=== PATIENT | male | born 1970 | race Caucasian/White ===

== ENCOUNTER 2018-06-04 16:50 | Inpatient (IN) | payer OTHER, MEDICAID ==
[2018-06-04] MEDS: ONDANSETRON 4 MG INJ IV ×2 (17:25→21:38)
[2018-06-04] MEDS: HYDROmorphONE 1 MG/ML SYG IV ×2 (17:25→21:38)
[2018-06-04 17:32] LABS: WHITE BLOOD COUNT 6.7 10^3/ul (4.8-10.8)
[2018-06-04 17:32] LABS: ABNORMAL IP MESSAGE 1; HEMATOCRIT 39.2 % (42.0-52.0); MEAN CORPUSCULAR HEMOGLOBIN 29.5 pg (29.0-33.0); MEAN CORPUSCULAR HGB CONC 30.6 g/dl (32.0-37.0); MEAN CORPUSCULAR VOLUME 96.3 fl (82.0-101.0); MEAN PLATELET VOLUME 9.1 fl (7.4-10.4); PLATELET COUNT 160 10^3/UL (140-415); POSITIVE DIFF @See below; RED BLOOD COUNT 4.07 10^6/ul (4.70-6.10); RED CELL DISTRIBUTION WIDTH 22.6 % (11.5-14.5)
[2018-06-04] MEDS: SOD CHLORIDE 0.9% 600 ML IV ×2 (17:34→19:23)
[2018-06-04 17:36] LABS: ADD MAN DIFF? YES
[2018-06-04 17:44] LABS: BASOPHILS % 0.1 % (0.0-2.0); LYMPHOCYTES # 0.3 10^3/ul (0.8-2.9); LYMPHOCYTES % 4.5 % (15.0-51.0); MONOCYTE # 0.4 10^3/ul (0.3-0.9); MONOCYTES % 6.4 % (0.0-11.0)
[2018-06-04 17:54] LABS: ALANINE AMINOTRANSFERASE 168 IU/L (13-69); ALBUMIN 4.8 g/dl (3.3-4.9); ALKALINE PHOSPHATASE 277 IU/L (42-121); ANION GAP 36 (5-13); ASPARTATE AMINO TRANSFERASE 480 IU/L (15-46); BILIRUBIN,INDIRECT 1.1 mg/dl (0-1.1); BILIRUBIN,TOTAL 2.8 mg/dl (0.2-1.3); BLOOD UREA NITROGEN 10 mg/dl (7-20); CALCIUM 8.4 mg/dl (8.4-10.2); CHLORIDE 83 mmol/L (97-110); Estimated GFR 59 mL/min (>60); MAGNESIUM 1.3 mg/dl (1.7-2.5); PHOSPHORUS 4.3 mg/dl (2.5-4.9); POTASSIUM 5.7 mmol/L (3.5-5.1); SODIUM 125 mmol/L (135-144)
[2018-06-04 17:59] LABS: CARBON DIOXIDE 6 mmol/L (21-31); GLUCOSE 575 mg/dl (70-220)
[2018-06-04] MEDS ORDERED: SODIUM CHLORIDE 23.4% 77 MEQ, POTASSIUM CHLORIDE 30 MEQ in DEXTROSE 10% 1,000 ML IV (18:04)
[2018-06-04] MEDS ORDERED: SODIUM CHLORIDE 23.4% 77 MEQ, POTASSIUM CHLORIDE 40 MEQ in DEXTROSE 10% 1,000 ML IV ×2 (18:04→20:39)
[2018-06-04] MEDS ORDERED: SODIUM PHOSPHATE 15 MMOL in SOD CHLORIDE 0.9% 250 ML IV (18:04)
[2018-06-04] MEDS ORDERED: CALCIUM GLUCONATE 10% 2 GM in SOD CHLORIDE 0.9% 100 ML IVPB (18:04)
[2018-06-04] MEDS ORDERED: POTASSIUM CHLORIDE 40 MEQ in SOD CHLORIDE 0.9% 1,000 ML IV ×2 (18:04→20:39)
[2018-06-04] MEDS ORDERED: SODIUM PHOSPHATE 30 MMOL in SOD CHLORIDE 0.9% 250 ML IV (18:04)
[2018-06-04] MEDS ORDERED: SODIUM CHLORIDE 23.4% 77 MEQ in DEXTROSE 10% 1,000 ML IV ×2 (18:04→20:39)
[2018-06-04] MEDS ORDERED: CALCIUM GLUCONATE 10% 1 GM in SOD CHLORIDE 0.9% 100 ML IVPB (18:04)
[2018-06-04] MEDS ORDERED: POTASSIUM CHLORIDE 30 MEQ in SOD CHLORIDE 0.9% 1,000 ML IV (18:04)
[2018-06-04 18:24] LABS: HEMOGLOBIN A1C 4.5 % (0-5.9)
[2018-06-04 18:29] LABS: ACETONE POSITIVE-MODERATE (NEGATIVE)
[2018-06-04] MEDS ORDERED: LACTATED RINGER'S 600 ML IV (18:30)
[2018-06-04] MEDS ORDERED: DEXTROSE 50% 50 ML SYRINGE IV ×4 (18:30→21:00)
[2018-06-04] MEDS ORDERED: MAGNESIUM SULFATE 1 GM/D5W 100 ML IVPB (18:30)
[2018-06-04] MEDS ORDERED: MAGNESIUM SULFATE 2 GM/50 ML 50 ML IVPB (18:30)
[2018-06-04 18:32] LABS: ANISOCYTOSIS 1+ (0-0); BAND NEUTROPHILS #M 1.8 10^3/ul (0.0-0.6); BAND NEUTROPHILS % (M) 28 % (0-4); GIANT THROMBO% (M) 1 % (0-0); LYMPHOCYTES #M 0.1 10^3/ul (0.8-2.9); LYMPHOCYTES % (M) 2 % (15-51); MICROCYTOSIS 1+ (0-0); MONOCYTES % (M) 1 % (0-11); MYELOCYTES #M 0.1 10^3/ul (0.0-0.0); MYELOCYTES % (M) 2 % (0-0); PLATELET MORPHOLOGY COMMENT @See below; POIKILOCYTOSIS 2+ (0-0); SEG NEUT #M 4.6 10^3/ul (1.6-7.5); SEGMENTED NEUTROPHILS (M) % 67 % (39-77); SMUDGE%M 4 % (0-0)
[2018-06-04] MEDS: INSULIN HUMAN REGULAR 100 UNIT in SOD CHLORIDE 0.9% 99 ML IV (18:37)
[2018-06-04 19:24] LABS: MODE NASAL CANNULA; MetHgb Venous 0.3 %; Sample Type Blood venous; Site VENOUS LINE; Venous COHb 0.2 %; Venous Fraction OxyHgb 89.2 %; Venous Oxygen Sat 89.6 mmHG (55.0-75.0); Venous Total Hemglobin 11.2 g/dl
[2018-06-04] MEDS: INSULIN REGULAR, HUMAN 100 UNIT in SOD CHLORIDE 0.9% 100 ML IV (19:25)
[2018-06-04] MEDS: SOD CHLORIDE 0.9% 1,000 ML IV ×3 (19:32→20:51)
[2018-06-04 20:00] LABS: ADD UMIC YES; UR ASCORBIC ACID NEGATIVE (NEGATIVE); UR BILIRUBIN (Dip) NEGATIVE (NEGATIVE); UR BLOOD (Dip) NEGATIVE (NEGATIVE); UR CLARITY CLEAR (CLEAR); UR COLOR YELLOW (YELLOW); UR GLUCOSE (Dip) 3+ mg/dL (NEGATIVE); UR KETONES (Dip) 2+ mg/dL (NEGATIVE); UR LEUKOCYTE ESTERASE (Dip) NEGATIVE Leu/ul (NEGATIVE); UR NITRITE (Dip) NEGATIVE (NEGATIVE); UR RBC 0 /HPF (0-5); UR TOTAL PROTEIN (Dip) 1+ mg/dl (NEGATIVE); UR UROBILINOGEN (Dip) NEGATIVE (NEGATIVE); UR WBC 1 /HPF (0-5)
[2018-06-04 20:17] LABS: ANION GAP 25 (5-13); BLOOD UREA NITROGEN 12 mg/dl (7-20); CALCIUM 7.8 mg/dl (8.4-10.2); CARBON DIOXIDE 11 mmol/L (21-31); CHLORIDE 90 mmol/L (97-110); CREATININE 1.02 mg/dl (0.61-1.24); Estimated GFR > 60 mL/min (>60); MAGNESIUM 1.2 mg/dl (1.7-2.5); PHOSPHORUS 2.5 mg/dl (2.5-4.9); POTASSIUM 4.6 mmol/L (3.5-5.1); SODIUM 126 mmol/L (135-144)
[2018-06-04 20:23] LABS: GLUCOSE 468 mg/dl (70-220)
[2018-06-04] MEDS ORDERED: SOD CHLORIDE 0.9% 1,000 ML IV (20:39)
[2018-06-04] MEDS ORDERED: ONDANSETRON 4 MG INJ IV ×2 (21:00→23:30)
[2018-06-04] MEDS ORDERED: ACETAMINOPHEN 325 MG TAB PO (21:00)
[2018-06-04] MEDS: POTASSIUM CHLORIDE 30 MEQ in SOD CHLORIDE 0.9% 1,000 ML IV ×2 (21:08→21:21)
[2018-06-04 21:12] LABS: LIPASE 2907 U/L (23-300)
[2018-06-04 21:37] LABS: MODE ROOM AIR; MetHgb Venous 0.3 %; Sample Type Blood venous; Site VENOUS LINE; Venous COHb 0 %; Venous Fraction OxyHgb 81.9 %; Venous Oxygen Sat 82.1 mmHG (55.0-75.0); Venous Total Hemglobin 10.9 g/dl
[2018-06-04] MEDS: SODIUM CHLORIDE 23.4% 77 MEQ, POTASSIUM CHLORIDE 30 MEQ in DEXTROSE 10% 1,000 ML IV (23:05)
[2018-06-04] MEDS ORDERED: morphine 4 MG/ML VIAL IV (23:30)
[2018-06-05 01:01] LABS: ANION GAP 17 (5-13); BLOOD UREA NITROGEN 16 mg/dl (7-20); CALCIUM 7.8 mg/dl (8.4-10.2); CARBON DIOXIDE 16 mmol/L (21-31); CHLORIDE 98 mmol/L (97-110); CREATININE 0.87 mg/dl (0.61-1.24); Estimated GFR > 60 mL/min (>60); GLUCOSE 364 mg/dl (70-220); POTASSIUM 4.1 mmol/L (3.5-5.1); SODIUM 131 mmol/L (135-144)
[2018-06-05] MEDS: POTASSIUM CHLORIDE 30 MEQ in SOD CHLORIDE 0.9% 1,000 ML IV (03:13)
[2018-06-05] MEDS: PANTOPRAZOLE 40 MG INJ IV (05:49)
[2018-06-05 05:50] LABS: CHOL/HDL RATIO 3.3 RATIO; CHOLESTEROL 208 mg/dl (100-200); HDL CHOLESTEROL 63 mg/dl (27-67); LDL CHOLESTEROL,CALCULATED 90 mg/dl; LIPASE 1452 U/L (23-300); MAGNESIUM 1.1 mg/dl (1.7-2.5); TRIGLYCERIDES 273 mg/dl (0-149)
[2018-06-05 05:50] LABS: PHOSPHORUS < 0.5 mg/dl (2.5-4.9)
[2018-06-05 05:50] LABS: AMYLASE 64 U/L (11-123)
[2018-06-05 05:54] LABS: ALANINE AMINOTRANSFERASE 111 IU/L (13-69); ALBUMIN 3.2 g/dl (3.3-4.9); ALBUMIN/GLOBULIN RATIO 1.28; ALKALINE PHOSPHATASE 161 IU/L (42-121); ANION GAP 12 (5-13); ASPARTATE AMINO TRANSFERASE 285 IU/L (15-46); BILIRUBIN,INDIRECT 0.8 mg/dl (0-1.1); BILIRUBIN,TOTAL 1.4 mg/dl (0.2-1.3); BLOOD UREA NITROGEN 19 mg/dl (7-20); CARBON DIOXIDE 17 mmol/L (21-31); CHLORIDE 104 mmol/L (97-110); CREATININE 0.74 mg/dl (0.61-1.24); Estimated GFR > 60 mL/min (>60); GLUCOSE 286 mg/dl (70-220); POTASSIUM 4.2 mmol/L (3.5-5.1); SODIUM 133 mmol/L (135-144); TOTAL PROTEIN 5.7 g/dl (6.1-8.1)
[2018-06-05] MEDS: SODIUM CHLORIDE 23.4% 77 MEQ, POTASSIUM CHLORIDE 30 MEQ in DEXTROSE 10% 1,000 ML IV (08:54)
[2018-06-05] MEDS: MAGNESIUM SULFATE 4 GM/100 ML 100 ML IVPB (08:55)
[2018-06-05] MEDS: INSULIN REGULAR, HUMAN 100 UNIT in SOD CHLORIDE 0.9% 100 ML IV (09:51)
[2018-06-05] MEDS ORDERED: DEXTROSE 50% 50 ML SYRINGE IV ×2 (10:00)
[2018-06-05] MEDS ORDERED: POTASSIUM CHLORIDE 30 MEQ in SOD CHLORIDE 0.45% 1,000 ML IV (10:00)
[2018-06-05] MEDS: ACCU-CHEK XX ×14 (10:00→23:00)
[2018-06-05] MEDS: POTASSIUM PHOSPHATE 30 MEQ in SOD CHLORIDE 0.9% 250 ML IVPB (11:21)
[2018-06-05 11:29] LABS: ANION GAP 9 (5-13); BLOOD UREA NITROGEN 17 mg/dl (7-20); CALCIUM 8.9 mg/dl (8.4-10.2); CARBON DIOXIDE 18 mmol/L (21-31); CHLORIDE 110 mmol/L (97-110); CREATININE 0.78 mg/dl (0.61-1.24); Estimated GFR > 60 mL/min (>60); GLUCOSE 103 mg/dl (70-220); MAGNESIUM 2.4 mg/dl (1.7-2.5); POTASSIUM 3.7 mmol/L (3.5-5.1); SODIUM 137 mmol/L (135-144)
[2018-06-05 11:30] LABS: PHOSPHORUS < 0.5 mg/dl (2.5-4.9)
[2018-06-05] MEDS: D5-LR + KCL 20 MEQ 1,000 ML IV ×2 (12:45→22:15)
[2018-06-05] MEDS: INSULIN HUMAN REGULAR 100 UNIT in SOD CHLORIDE 0.9% 99 ML IV (13:40)
[2018-06-05 14:02] LABS: ANION GAP 10 (5-13); BLOOD UREA NITROGEN 16 mg/dl (7-20); CALCIUM 8.9 mg/dl (8.4-10.2); CARBON DIOXIDE 18 mmol/L (21-31); CHLORIDE 109 mmol/L (97-110); CREATININE 0.77 mg/dl (0.61-1.24); Estimated GFR > 60 mL/min (>60); GLUCOSE 155 mg/dl (70-220); MAGNESIUM 2.7 mg/dl (1.7-2.5); PHOSPHORUS 0.6 mg/dl (2.5-4.9); SODIUM 137 mmol/L (135-144)
[2018-06-05] MEDS: THIAMINE 100 MG TAB PO (15:28)
[2018-06-05 19:02] LABS: ANION GAP 10 (5-13); BLOOD UREA NITROGEN 13 mg/dl (7-20); CALCIUM 8.9 mg/dl (8.4-10.2); CARBON DIOXIDE 18 mmol/L (21-31); CHLORIDE 111 mmol/L (97-110); Estimated GFR > 60 mL/min (>60); GLUCOSE 163 mg/dl (70-220); MAGNESIUM 2.3 mg/dl (1.7-2.5); POTASSIUM 3.6 mmol/L (3.5-5.1); SODIUM 139 mmol/L (135-144)
[2018-06-05 19:05] LABS: PHOSPHORUS < 0.5 mg/dl (2.5-4.9)
[2018-06-05 22:32] LABS: ANION GAP 7 (5-13); BLOOD UREA NITROGEN 10 mg/dl (7-20); CALCIUM 8.5 mg/dl (8.4-10.2); CARBON DIOXIDE 19 mmol/L (21-31); CHLORIDE 111 mmol/L (97-110); CREATININE 0.57 mg/dl (0.61-1.24); Estimated GFR > 60 mL/min (>60); GLUCOSE 152 mg/dl (70-220); MAGNESIUM 2.2 mg/dl (1.7-2.5); POTASSIUM 3.4 mmol/L (3.5-5.1); SODIUM 137 mmol/L (135-144)
[2018-06-05 22:34] LABS: PHOSPHORUS < 0.5 mg/dl (2.5-4.9)
[2018-06-06] MEDS: POTASSIUM PHOSPHATE 30 MEQ in SOD CHLORIDE 0.9% 250 ML IVPB ×2 (00:44→09:13)
[2018-06-06] MEDS: ACCU-CHEK XX ×10 (02:00→18:48)
[2018-06-06 05:30] LABS: ABNORMAL IP MESSAGE 1; HEMATOCRIT 27.7 % (42.0-52.0); HEMOGLOBIN 9.5 g/dl (14.0-18.0); MEAN CORPUSCULAR HGB CONC 34.3 g/dl (32.0-37.0); MEAN CORPUSCULAR VOLUME 87.4 fl (82.0-101.0); MEAN PLATELET VOLUME 10.2 fl (7.4-10.4); PLATELET COUNT 83 10^3/UL (140-415); POSITIVE DIFF @See below; RED BLOOD COUNT 3.17 10^6/ul (4.70-6.10); RED CELL DISTRIBUTION WIDTH 23.1 % (11.5-14.5)
[2018-06-06 05:30] LABS: WHITE BLOOD COUNT 3.2 10^3/ul (4.8-10.8)
[2018-06-06 05:34] LABS: ADD MAN DIFF? YES
[2018-06-06 06:18] LABS: ALANINE AMINOTRANSFERASE 94 IU/L (13-69); ALBUMIN 3.1 g/dl (3.3-4.9); ALBUMIN/GLOBULIN RATIO 1.55; ALKALINE PHOSPHATASE 215 IU/L (42-121); ANION GAP 9 (5-13); ASPARTATE AMINO TRANSFERASE 236 IU/L (15-46); BILIRUBIN,INDIRECT 0.6 mg/dl (0-1.1); BILIRUBIN,TOTAL 0.6 mg/dl (0.2-1.3); BLOOD UREA NITROGEN 7 mg/dl (7-20); CALCIUM 8.8 mg/dl (8.4-10.2); CARBON DIOXIDE 21 mmol/L (21-31); CHLORIDE 111 mmol/L (97-110); CREATININE 0.59 mg/dl (0.61-1.24); Estimated GFR > 60 mL/min (>60); GLUCOSE 130 mg/dl (70-220); POTASSIUM 3.3 mmol/L (3.5-5.1); SODIUM 141 mmol/L (135-144); TOTAL PROTEIN 5.1 g/dl (6.1-8.1)
[2018-06-06 06:23] LABS: PHOSPHORUS 1.3 mg/dl (2.5-4.9)
[2018-06-06 06:23] LABS: MAGNESIUM 1.8 mg/dl (1.7-2.5)
[2018-06-06] MEDS: PANTOPRAZOLE 40 MG INJ IV (06:30)
[2018-06-06 07:23] LABS: ERYTHROCYTE SEDIMENTATION RATE 42 mm/Hr (0-15)
[2018-06-06 07:32] LABS: ANISOCYTOSIS 2+ (0-0); BAND NEUTROPHILS #M 0.6 10^3/ul (0.0-0.6); BAND NEUTROPHILS % (M) 20 % (0-4); BASOPHILS % (M) 1 % (0-2); GIANT THROMBO% (M) 4 % (0-0); LYMPHOCYTES #M 0.6 10^3/ul (0.8-2.9); LYMPHOCYTES % (M) 19 % (15-51); MICROCYTOSIS 1+ (0-0); MONOCYTES % (M) 3 % (0-11); PLATELET ESTIMATE DECREASED; POLYCHROMASIA 2+ (0-0); REACTIVE LYMPHOCYTES% (M) 1 % (0-0); SEG NEUT #M 1.8 10^3/ul (1.6-7.5); SEGMENTED NEUTROPHILS (M) % 56 % (39-77); SMUDGE%M 18 % (0-0); SPHEROCYTES 1+ (0-0)
[2018-06-06] MEDS: THIAMINE 100 MG TAB PO (09:10)
[2018-06-06] MEDS: MAGNESIUM SULFATE 2 GM/50 ML 50 ML IVPB (09:11)
[2018-06-06] MEDS: D5-LR + KCL 20 MEQ 1,000 ML IV ×2 (10:06→18:50)
[2018-06-06 13:53] LABS: LIPASE 3167 U/L (23-300)
[2018-06-06 13:56] LABS: C-PEPTIDE 4.16 ng/mL (0.80-3.85)
[2018-06-06] MEDS: POTASSIUM CHLORIDE (SR) 20 MEQ TAB PO (15:53)
[2018-06-06] MEDS: FOLIC ACID 1 MG TAB PO (15:53)
[2018-06-06] MEDS: INSULIN GLARGINE [LANTus] (100 UNITS/ML) SYG SC ×2 (17:00→20:35)
[2018-06-06] MEDS: INSULIN ASPART [NOVOLOG] 3 ML PEN SC ×2 (17:27→20:29)
[2018-06-06 18:27] LABS: OCCULT BLOOD STOOL POSITIVE (NEGATIVE)
[2018-06-06] MEDS ORDERED: GLUCOSE GEL 15 GRAM TUBE PO ×2 (19:00)
[2018-06-06] MEDS ORDERED: DEXTROSE 50% 50 ML SYRINGE IV ×2 (19:00)
[2018-06-06] MEDS ORDERED: GLUCAGON 1 MG INJ IM (19:00)
[2018-06-06] MEDS ORDERED: GLUCOSE GEL 15 GRAM TUBE BUCCAL (19:00)
[2018-06-07] MEDS: D5-LR + KCL 20 MEQ 1,000 ML IV ×3 (01:59→15:08)
[2018-06-07] MEDS: ACCU-CHEK XX (02:00)
[2018-06-07 05:26] LABS: ADD MAN DIFF? NO
[2018-06-07 05:33] LABS: ABNORMAL IP MESSAGE 1; HEMATOCRIT 27.6 % (42.0-52.0); HEMOGLOBIN 9.3 g/dl (14.0-18.0); MEAN CORPUSCULAR HEMOGLOBIN 30.5 pg (29.0-33.0); MEAN CORPUSCULAR HGB CONC 33.7 g/dl (32.0-37.0); MEAN CORPUSCULAR VOLUME 90.5 fl (82.0-101.0); MEAN PLATELET VOLUME 10.2 fl (7.4-10.4); PLATELET COUNT 72 10^3/UL (140-415); POSITIVE DIFF @See below; RED BLOOD COUNT 3.05 10^6/ul (4.70-6.10); RED CELL DISTRIBUTION WIDTH 24.5 % (11.5-14.5)
[2018-06-07 05:33] LABS: WHITE BLOOD COUNT 4.1 10^3/ul (4.8-10.8)
[2018-06-07 06:02] LABS: LIPASE 3893 U/L (23-300)
[2018-06-07 06:09] LABS: ANION GAP 7 (5-13); BLOOD UREA NITROGEN 4 mg/dl (7-20); CALCIUM 8.8 mg/dl (8.4-10.2); CARBON DIOXIDE 27 mmol/L (21-31); CHLORIDE 106 mmol/L (97-110); CREATININE 0.56 mg/dl (0.61-1.24); Estimated GFR > 60 mL/min (>60); GLUCOSE 91 mg/dl (70-220); POTASSIUM 3.5 mmol/L (3.5-5.1); SODIUM 140 mmol/L (135-144)
[2018-06-07 06:10] LABS: MAGNESIUM 1.6 mg/dl (1.7-2.5)
[2018-06-07 07:34] LABS: ANISOCYTOSIS 1+ (0-0); BAND NEUTROPHILS #M 0.3 10^3/ul (0.0-0.6); BAND NEUTROPHILS % (M) 8 % (0-4); BASOPHIL #M 0.2 10^3/ul (0.0-0.0); BASOPHILS % (M) 6 % (0-2); EOSINOPHILS % (M) 1 % (0-7); GIANT THROMBO% (M) 2 % (0-0); HYPOCHROMASIA 1+ (0-0); LYMPHOCYTES #M 0.9 10^3/ul (0.8-2.9); LYMPHOCYTES % (M) 24 % (15-51); MICROCYTOSIS 1+ (0-0); MONOCYTE #M 0.1 10^3/ul (0.3-0.9); MONOCYTES % (M) 4 % (0-11); MYELOCYTES % (M) 1 % (0-0); PLATELET ESTIMATE DECREASED; POLYCHROMASIA 1+ (0-0); REACTIVE LYMPHOCYTES #M 0.1 10^3/ul (0.0-0.0); REACTIVE LYMPHOCYTES% (M) 3 % (0-0); SEG NEUT #M 2.2 10^3/ul (1.6-7.5); SEGMENTED NEUTROPHILS (M) % 53 % (39-77); SMUDGE%M 2 % (0-0); TARGET CELLS 1+ (0-0)
[2018-06-07] MEDS: PANTOPRAZOLE 40 MG INJ IV (07:53)
[2018-06-07] MEDS ORDERED: INSULIN GLARGINE [LANTus] (100 UNITS/ML) SYG SC (08:00)
[2018-06-07] MEDS: THIAMINE 100 MG TAB PO (08:57)
[2018-06-07] MEDS: INSULIN ASPART [NOVOLOG] 3 ML PEN SC ×4 (08:57→21:00)
[2018-06-07] MEDS: FOLIC ACID 1 MG TAB PO (08:58)
[2018-06-07] MEDS ORDERED: LINAGLIPTIN 5 MG TABLET PO (10:00)
[2018-06-07] MEDS: MAGNESIUM SULFATE 4 GM/100 ML 100 ML IVPB (10:24)
[2018-06-07] MEDS: metFORMIN 500 MG TAB PO ×2 (10:54→18:03)
[2018-06-07] MEDS: POTASSIUM PHOSPHATE 40 MEQ in SOD CHLORIDE 0.9% 250 ML IVPB (15:08)
[2018-06-07] MEDS: INSULIN GLARGINE [LANTus] (100 UNITS/ML) SYG SC (20:58)
[2018-06-08] MEDS: ACCU-CHEK XX (02:00)
[2018-06-08] MEDS: PANTOPRAZOLE 40 MG INJ IV (06:04)
[2018-06-08] MEDS: D5-LR + KCL 20 MEQ 1,000 ML IV ×2 (06:04→16:06)
[2018-06-08] MEDS: INSULIN ASPART [NOVOLOG] 3 ML PEN SC ×4 (07:50→21:00)
[2018-06-08] MEDS: THIAMINE 100 MG TAB PO (08:42)
[2018-06-08] MEDS: FOLIC ACID 1 MG TAB PO (08:42)
[2018-06-08] MEDS: metFORMIN 500 MG TAB PO ×2 (08:43→17:46)
[2018-06-08] MEDS ORDERED: morphine LIQ (10 MG/5 ML) CUP PO (16:30)
[2018-06-08] MEDS: INSULIN GLARGINE [LANTus] (100 UNITS/ML) SYG SC (20:46)
[2018-06-09] MEDS: ACCU-CHEK XX (02:00)
[2018-06-09] MEDS: D5-LR + KCL 20 MEQ 1,000 ML IV ×2 (02:01→12:22)
[2018-06-09 05:08] LABS: ADD MAN DIFF? NO
[2018-06-09 05:12] LABS: ABNORMAL IP MESSAGE 1; BASOPHILS % 0.7 % (0.0-2.0); EOSINOPHILS # 0.1 10^3/ul (0.0-0.5); EOSINOPHILS % 2.6 % (0.0-7.0); HEMATOCRIT 27.6 % (42.0-52.0); HEMOGLOBIN 8.9 g/dl (14.0-18.0); LYMPHOCYTES # 1.4 10^3/ul (0.8-2.9); LYMPHOCYTES % 33.4 % (15.0-51.0); MEAN CORPUSCULAR HEMOGLOBIN 30.2 pg (29.0-33.0); MEAN CORPUSCULAR HGB CONC 32.2 g/dl (32.0-37.0); MEAN CORPUSCULAR VOLUME 93.6 fl (82.0-101.0); MEAN PLATELET VOLUME 11.7 fl (7.4-10.4); MONOCYTE # 0.7 10^3/ul (0.3-0.9); MONOCYTES % 17.3 % (0.0-11.0); NEUTROPHIL # 1.9 10^3/ul (1.6-7.5); NEUTROPHILS % 44.1 % (39.0-77.0); PLATELET COUNT 104 10^3/UL (140-415); POSITIVE DIFF @See below; RED BLOOD COUNT 2.95 10^6/ul (4.70-6.10)
[2018-06-09 05:12] LABS: WHITE BLOOD COUNT 4.2 10^3/ul (4.8-10.8)
[2018-06-09 05:46] LABS: ANION GAP 9 (5-13); BLOOD UREA NITROGEN 9 mg/dl (7-20); CALCIUM 9.2 mg/dl (8.4-10.2); CARBON DIOXIDE 26 mmol/L (21-31); CHLORIDE 103 mmol/L (97-110); Estimated GFR > 60 mL/min (>60); GLUCOSE 81 mg/dl (70-220); POTASSIUM 4.9 mmol/L (3.5-5.1); SODIUM 138 mmol/L (135-144)
[2018-06-09 05:47] LABS: UR KETONES (Dip) NEGATIVE (NEGATIVE)
[2018-06-09] MEDS: PANTOPRAZOLE (EC) 40 MG TAB PO ×2 (06:29→17:31)
[2018-06-09 07:04] LABS: ALANINE AMINOTRANSFERASE 75 IU/L (13-69); ALBUMIN 3.3 g/dl (3.3-4.9); ALKALINE PHOSPHATASE 221 IU/L (42-121); AMYLASE 241 U/L (11-123); ASPARTATE AMINO TRANSFERASE 120 IU/L (15-46); BILIRUBIN,INDIRECT 0.4 mg/dl (0-1.1); BILIRUBIN,TOTAL 0.4 mg/dl (0.2-1.3); TOTAL PROTEIN 5.5 g/dl (6.1-8.1)
[2018-06-09 07:44] LABS: LIPASE 5504 U/L (23-300)
[2018-06-09] MEDS: INSULIN ASPART [NOVOLOG] 3 ML PEN SC ×4 (07:50→20:38)
[2018-06-09] MEDS: metFORMIN 500 MG TAB PO ×2 (09:00→17:31)
[2018-06-09] MEDS: THIAMINE 100 MG TAB PO (09:20)
[2018-06-09] MEDS: FOLIC ACID 1 MG TAB PO (09:20)
[2018-06-09 09:24] LABS: CARCINOEMBRYONIC ANTIGEN 5.8 ng/ml (0.0-5.0)
[2018-06-09 09:28] LABS: ALPHA FETOPROTEIN 2.06 IU/L (0.00-7.21)
[2018-06-09 14:18] LABS: HEMATOCRIT 26.9 % (42.0-52.0)
[2018-06-09] MEDS: INSULIN GLARGINE [LANTus] (100 UNITS/ML) SYG SC (20:00)
[2018-06-10] MEDS: D5-LR + KCL 20 MEQ 1,000 ML IV ×3 (01:45→20:11)
[2018-06-10] MEDS: ACCU-CHEK XX ×2 (01:49→20:13)
[2018-06-10 05:13] LABS: ADD MAN DIFF? NO
[2018-06-10 05:15] LABS: WHITE BLOOD COUNT 3.5 10^3/ul (4.8-10.8)
[2018-06-10 05:15] LABS: ABNORMAL IP MESSAGE 1; BASOPHILS % 0.9 % (0.0-2.0); EOSINOPHILS # 0.1 10^3/ul (0.0-0.5); EOSINOPHILS % 2.6 % (0.0-7.0); HEMATOCRIT 26.1 % (42.0-52.0); HEMOGLOBIN 8.6 g/dl (14.0-18.0); LYMPHOCYTES # 1.2 10^3/ul (0.8-2.9); LYMPHOCYTES % 35.1 % (15.0-51.0); MEAN CORPUSCULAR HEMOGLOBIN 30.7 pg (29.0-33.0); MEAN CORPUSCULAR VOLUME 93.2 fl (82.0-101.0); MONOCYTE # 0.9 10^3/ul (0.3-0.9); MONOCYTES % 24.6 % (0.0-11.0); NEUTROPHIL # 1.2 10^3/ul (1.6-7.5); NEUTROPHILS % 34.5 % (39.0-77.0); PLATELET COUNT 142 10^3/UL (140-415); POSITIVE DIFF @See below; RED CELL DISTRIBUTION WIDTH 24.5 % (11.5-14.5)
[2018-06-10] MEDS: PANTOPRAZOLE (EC) 40 MG TAB PO ×2 (05:28→17:45)
[2018-06-10 05:53] LABS: ALANINE AMINOTRANSFERASE 63 IU/L (13-69); ALBUMIN 3.3 g/dl (3.3-4.9); ALBUMIN/GLOBULIN RATIO 1.32; ALKALINE PHOSPHATASE 208 IU/L (42-121); AMYLASE 243 U/L (11-123); ANION GAP 8 (5-13); ASPARTATE AMINO TRANSFERASE 87 IU/L (15-46); BILIRUBIN,INDIRECT 0.4 mg/dl (0-1.1); BILIRUBIN,TOTAL 0.4 mg/dl (0.2-1.3); BLOOD UREA NITROGEN 10 mg/dl (7-20); CARBON DIOXIDE 27 mmol/L (21-31); CHLORIDE 103 mmol/L (97-110); CREATININE 0.69 mg/dl (0.61-1.24); Estimated GFR > 60 mL/min (>60); GLUCOSE 114 mg/dl (70-220); SODIUM 138 mmol/L (135-144); TOTAL PROTEIN 5.8 g/dl (6.1-8.1)
[2018-06-10 06:34] LABS: POTASSIUM 3.9 mmol/L (3.5-5.1)
[2018-06-10] MEDS: INSULIN ASPART [NOVOLOG] 3 ML PEN SC ×4 (08:54→20:10)
[2018-06-10] MEDS: metFORMIN 500 MG TAB PO ×2 (08:54→17:45)
[2018-06-10] MEDS: FOLIC ACID 1 MG TAB PO (08:55)
[2018-06-10] MEDS: THIAMINE 100 MG TAB PO (08:55)
[2018-06-10] MEDS: INSULIN GLARGINE [LANTus] (100 UNITS/ML) SYG SC (20:00)
[2018-06-11] MEDS: D5-LR + KCL 20 MEQ 1,000 ML IV ×3 (01:34→22:36)
[2018-06-11 05:14] LABS: ADD MAN DIFF? NO
[2018-06-11 05:16] LABS: ABNORMAL IP MESSAGE 1; BASOPHILS % 0.7 % (0.0-2.0); EOSINOPHILS # 0.1 10^3/ul (0.0-0.5); HEMATOCRIT 26.3 % (42.0-52.0); HEMOGLOBIN 8.5 g/dl (14.0-18.0); LYMPHOCYTES % 25.2 % (15.0-51.0); MEAN CORPUSCULAR HEMOGLOBIN 30.2 pg (29.0-33.0); MEAN CORPUSCULAR HGB CONC 32.3 g/dl (32.0-37.0); MEAN CORPUSCULAR VOLUME 93.6 fl (82.0-101.0); MEAN PLATELET VOLUME 10.7 fl (7.4-10.4); MONOCYTE # 1.2 10^3/ul (0.3-0.9); MONOCYTES % 28.9 % (0.0-11.0); NEUTROPHIL # 1.6 10^3/ul (1.6-7.5); PLATELET COUNT 185 10^3/UL (140-415); POSITIVE DIFF @See below; RED BLOOD COUNT 2.81 10^6/ul (4.70-6.10); RED CELL DISTRIBUTION WIDTH 23.9 % (11.5-14.5)
[2018-06-11 05:34] LABS: ANION GAP 6 (5-13); BLOOD UREA NITROGEN 5 mg/dl (7-20); CALCIUM 8.7 mg/dl (8.4-10.2); CARBON DIOXIDE 26 mmol/L (21-31); CHLORIDE 106 mmol/L (97-110); Estimated GFR > 60 mL/min (>60); GLUCOSE 98 mg/dl (70-220); POTASSIUM 3.9 mmol/L (3.5-5.1); SODIUM 138 mmol/L (135-144)
[2018-06-11 05:46] LABS: LIPASE 2979 U/L (23-300)
[2018-06-11] MEDS: PANTOPRAZOLE (EC) 40 MG TAB PO ×2 (05:46→17:43)
[2018-06-11] MEDS: INSULIN ASPART [NOVOLOG] 3 ML PEN SC ×4 (07:50→20:12)
[2018-06-11] MEDS: metFORMIN 500 MG TAB PO ×2 (08:49→17:44)
[2018-06-11] MEDS: FOLIC ACID 1 MG TAB PO (08:49)
[2018-06-11] MEDS ORDERED: hydrALAzine 20 MG INJ IV (14:00)
[2018-06-11] MEDS: LISINOPRIL 10 MG TAB PO (14:21)
[2018-06-11] MEDS: PIOGLITAZONE 30 MG TAB PO (16:52)
[2018-06-12] MEDS: ACCU-CHEK XX (01:20)
[2018-06-12 05:15] LABS: ADD MAN DIFF? NO
[2018-06-12 05:23] LABS: WHITE BLOOD COUNT 4.8 10^3/ul (4.8-10.8)
[2018-06-12 05:23] LABS: ABNORMAL IP MESSAGE 1; BASOPHILS % 0.4 % (0.0-2.0); EOSINOPHILS # 0.1 10^3/ul (0.0-0.5); EOSINOPHILS % 1.7 % (0.0-7.0); HEMATOCRIT 28.9 % (42.0-52.0); HEMOGLOBIN 9.3 g/dl (14.0-18.0); LYMPHOCYTES # 1.3 10^3/ul (0.8-2.9); LYMPHOCYTES % 27.7 % (15.0-51.0); MEAN CORPUSCULAR HEMOGLOBIN 30.7 pg (29.0-33.0); MEAN CORPUSCULAR HGB CONC 32.2 g/dl (32.0-37.0); MEAN CORPUSCULAR VOLUME 95.4 fl (82.0-101.0); MEAN PLATELET VOLUME 10.9 fl (7.4-10.4); MONOCYTES % 20.9 % (0.0-11.0); NEUTROPHIL # 2.4 10^3/ul (1.6-7.5); NEUTROPHILS % 48.5 % (39.0-77.0); PLATELET COUNT 261 10^3/UL (140-415); POSITIVE DIFF @See below; RED BLOOD COUNT 3.03 10^6/ul (4.70-6.10); RED CELL DISTRIBUTION WIDTH 22.8 % (11.5-14.5)
[2018-06-12] MEDS: PANTOPRAZOLE (EC) 40 MG TAB PO ×2 (05:31→17:58)
[2018-06-12 05:45] LABS: ALANINE AMINOTRANSFERASE 46 IU/L (13-69); ALBUMIN 3.6 g/dl (3.3-4.9); ALBUMIN/GLOBULIN RATIO 1.24; ALKALINE PHOSPHATASE 180 IU/L (42-121); ANION GAP 10 (5-13); ASPARTATE AMINO TRANSFERASE 49 IU/L (15-46); BILIRUBIN,INDIRECT 0.5 mg/dl (0-1.1); BILIRUBIN,TOTAL 0.5 mg/dl (0.2-1.3); BLOOD UREA NITROGEN 5 mg/dl (7-20); CARBON DIOXIDE 24 mmol/L (21-31); CHLORIDE 105 mmol/L (97-110); CREATININE 0.73 mg/dl (0.61-1.24); Estimated GFR > 60 mL/min (>60); GLUCOSE 103 mg/dl (70-220); POTASSIUM 3.6 mmol/L (3.5-5.1); SODIUM 139 mmol/L (135-144); TOTAL PROTEIN 6.5 g/dl (6.1-8.1)
[2018-06-12 05:47] LABS: LIPASE 3600 U/L (23-300)
[2018-06-12] MEDS: D5-LR + KCL 20 MEQ 1,000 ML IV (06:55)
[2018-06-12] MEDS: INSULIN ASPART [NOVOLOG] 3 ML PEN SC ×4 (07:50→20:57)
[2018-06-12] MEDS: metFORMIN 500 MG TAB PO ×2 (08:28→17:59)
[2018-06-12] MEDS: PIOGLITAZONE 30 MG TAB PO (08:28)
[2018-06-12] MEDS: LISINOPRIL 10 MG TAB PO (08:29)
[2018-06-12] MEDS: FOLIC ACID 1 MG TAB PO (08:29)
[2018-06-13] MEDS: ACCU-CHEK XX (02:00)
[2018-06-13 05:18] LABS: ABNORMAL IP MESSAGE 1; HEMATOCRIT 30.3 % (42.0-52.0); HEMOGLOBIN 9.6 g/dl (14.0-18.0); MEAN CORPUSCULAR HEMOGLOBIN 30.1 pg (29.0-33.0); MEAN CORPUSCULAR HGB CONC 31.7 g/dl (32.0-37.0); MEAN PLATELET VOLUME 10.8 fl (7.4-10.4); PLATELET COUNT 278 10^3/UL (140-415); POSITIVE DIFF @See below; RED BLOOD COUNT 3.19 10^6/ul (4.70-6.10); RED CELL DISTRIBUTION WIDTH 22.3 % (11.5-14.5)
[2018-06-13 05:18] LABS: WHITE BLOOD COUNT 6.1 10^3/ul (4.8-10.8)
[2018-06-13 05:30] LABS: ADD MAN DIFF? NO
[2018-06-13 05:38] LABS: MAGNESIUM 1.6 mg/dl (1.7-2.5)
[2018-06-13] MEDS: PANTOPRAZOLE (EC) 40 MG TAB PO (05:38)
[2018-06-13 05:39] LABS: ALANINE AMINOTRANSFERASE 50 IU/L (13-69); ALBUMIN 3.9 g/dl (3.3-4.9); ALBUMIN/GLOBULIN RATIO 1.56; ALKALINE PHOSPHATASE 177 IU/L (42-121); AMYLASE 230 U/L (11-123); ANION GAP 11 (5-13); ASPARTATE AMINO TRANSFERASE 43 IU/L (15-46); BILIRUBIN,INDIRECT 0.4 mg/dl (0-1.1); BILIRUBIN,TOTAL 0.4 mg/dl (0.2-1.3); BLOOD UREA NITROGEN 9 mg/dl (7-20); CALCIUM 9.2 mg/dl (8.4-10.2); CARBON DIOXIDE 24 mmol/L (21-31); CHLORIDE 102 mmol/L (97-110); CREATININE 0.87 mg/dl (0.61-1.24); Estimated GFR > 60 mL/min (>60); GLUCOSE 97 mg/dl (70-220); POTASSIUM 3.7 mmol/L (3.5-5.1); SODIUM 137 mmol/L (135-144); TOTAL PROTEIN 6.4 g/dl (6.1-8.1)
[2018-06-13 05:47] LABS: LIPASE 3262 U/L (23-300)
[2018-06-13] MEDS: INSULIN ASPART [NOVOLOG] 3 ML PEN SC ×2 (07:50→11:40)
[2018-06-13] MEDS: LISINOPRIL 10 MG TAB PO (08:31)
[2018-06-13] MEDS: metFORMIN 500 MG TAB PO (08:31)
[2018-06-13] MEDS: FOLIC ACID 1 MG TAB PO (08:32)
[2018-06-13] MEDS: PIOGLITAZONE 30 MG TAB PO (08:32)
== END 2018-06-13 17:00 | disposition home or self-care (01) | DRG 637 ==
LOC: MS1 06-07 01:12 → E/R 16:50 → ICU 21:26
PROVIDERS: Internal Medicine
DX: E11.10 Type 2 diabetes mellitus with ketoacidosis without coma (principal); K85.20 Alcohol induced acute pancreatitis without necrosis or infection; D61.818 Other pancytopenia; I10 Essential (primary) hypertension; K76.0 Fatty (change of) liver, not elsewhere classified; R16.0 Hepatomegaly, not elsewhere classified; R74.0 Nonspecific elevation of levels of transaminase and lactic acid dehydrogenase [LDH]; F17.200 Nicotine dependence, unspecified, uncomplicated; F10.10 Alcohol abuse, uncomplicated; B35.1 Tinea unguium; Z87.19 Personal history of other diseases of the digestive system; Z86.73 Personal history of transient ischemic attack (TIA), and cerebral infarction without residual deficits; Z79.82 Long term (current) use of aspirin; Z91.14 Patient's other noncompliance with medication regimen
CPT/HCPCS: 36415; 74176; 74181; 76705; 80048; 80053; 80061; 80076; 81001; 81005; 82010; 82105; 82150; 82270; 82378; 82803; 82962; 83036; 83690; 83735; 84100; 84681; 85014; 85018; 85025; 85651; 86301; 87081; 93005; 96361; 96374; 96375; 99291-25